=== PATIENT | female | born 1995 | race Caucasian/White ===

== ENCOUNTER 2018-04-17 20:40 | Emergency (ER) | payer OTHER ==
[~2018-04-17] VITALS: Ht 162.6 cm; Wt 71.5 kg
[~2018-04-17 20:40] MED LIST: Ambien PO; BENTYL10 MG PO; CLINDAMYCIN HC300 MG PO; Chromagen, Feogen, M PO; Lasix PO; MOTRIN800 MG PO; Motrin PO; NOHOMEMEDS; NORTREL 1/351 TABLET PO; Natalcare Rx,Pramile PO; Percocet 5/325,Endoc PO; Procardia XL,Adalat PO; ZOFRAN ODT4 MG PO; ZOFRAN4 MG PO
[2018-04-17 21:49] LABS: HEMATOCRIT 39.3 % (36.0-46.0); HEMOGLOBIN 13.4 G/DL (11.9-15.5); MCH 31.2 PG (29.0-34.0); MCHC 34.1 G/DL (30.0-36.0); MCV 91.6 FL (83-99); PLATELET COUNT 192 K/uL (156-360); RBC DIS.WIDTH-CV 12.7 % (11.8-14.6); RBC DIS.WIDTH-SD 42.5 % (39-53); RED BLOOD COUNT 4.29 M/uL (3.80-5.20); WHITE BLOOD COUNT 14.5 K/uL (4.1-10.2)
[2018-04-17 21:52] LABS: APPEARANCE CLOUDY ((CLEAR)); BILIRUBIN NEGATIVE; BLOOD SMALL; COLOR YELLOW ((YELLOW)); GLUCOSE (STRIP) NEGATIVE; KETONES NEGATIVE; LEUKOCYTES NEGATIVE; NITRITE NEGATIVE; PROTEIN (STRIP) 30; SPECIFIC GRAVITY 1.025 (1.000-1.030); UROBILINOGEN 0.2 MG/DL (0.2-1.0)
[2018-04-17 22:02] LABS: ALBUMIN 4.4 g/dL (3.2-4.8); CHLORIDE 107 mEq/L (99-109); POTASSIUM 3.9 mEq/L (3.7-5.4); SODIUM 142 mEq/L (136-147)
[2018-04-17 22:04] LABS: GLUCOSE 71 mg/dL (70-99)
[2018-04-17 22:06] LABS: TOTAL BILIRUBIN 0.3 mg/dL (0.0-1.0)
[2018-04-17 22:08] LABS: ALKALINE PHOSPHATASE 47 IU/L (3-129); CREATININE 0.7 mg/dL (0.6-1.3); GFR ESTIMATE (CALCULATED) > 59 mL/min/
[2018-04-17 22:09] LABS: UREA NITROGEN (BUN) 13 mg/dL (9-23)
[2018-04-17 22:10] LABS: AST (GOT) 14 IU/L (2-34)
[2018-04-17 22:11] LABS: ALT (GPT) 9 IU/L (3-49)
[2018-04-17 22:18] LABS: BACTERIA RARE /HPF; EPITHELIAL CELLS 3+ /HPF; MUCUS 1+ /LPF; RED BLOOD CELLS 0-5 /HPF (0-5); UCUL ADDED? NO; WHITE BLOOD CELLS 0-5 /HPF (0-5)
[2018-04-17 22:18] LABS: QUANTITATIVE HCG < 4.0 MIU/ML
[2018-04-18] MEDS ORDERED: MOTRIN600 MG PO (00:15)
[2018-04-18] MEDS ORDERED: ZOFRAN4 MG PO (00:15)
[2018-04-18] MEDS ORDERED: FLEXERIL5 MG PO (00:15)
[2018-04-18 00:19] VITALS: BP 113/73
== END 2018-04-18 00:20 | disposition home or self-care (01) ==
LOC: EME 20:40
PROVIDERS: Physician Assistant
DX: S06.0X9A Concussion with loss of consciousness of unspecified duration, initial encounter (principal); R10.32 Left lower quadrant pain; V48.5XXA Car driver injured in noncollision transport accident in traffic accident, initial encounter; Y92.410 Unspecified street and highway as the place of occurrence of the external cause; Z88.0 Allergy status to penicillin
CPT/HCPCS: 70450; 72050; 74177; 80053; 81003; 84702; 85027; 99281; 99285; J2405; J3010